=== PATIENT | male | born 1975 | race Caucasian/White ===

== ENCOUNTER 2023-06-23 11:53 | Outpatient (CLI) | payer SELFPAY ==
[2023-06-23 13:04] LABS: Basophils Absolute Auto 0.03 K/mm3 (0.00-0.10); Basophils Percent Auto 0.5 % (0.0-1.0); Eosinophils Absolute Auto 0.04 K/mm3 (0.02-0.50); Eosinophils Percent Auto 0.7 % (1.0-6.0); Hemoglobin 13.7 g/dL (14.0-18.0); Immature Granulocyte Absolute 0.02 K/mm3 (0.00-0.00); Immature Granulocyte Percent A 0.3 % (0.0-0.0); Lymphocytes Absolute Auto 1.23 K/mm3 (1.10-4.50); Lymphocytes Percent Auto 20.5 % (18.0-42.0); Mean Corpuscular HGB Conc 32.6 g/dL (32.0-36.0); Mean Corpuscular Volume 88.8 fL (78.0-102.0); Mean Platelet Volume 8.9 fl (8.7-11.0); Monocytes Absolute Auto 0.37 K/mm3 (0.10-0.90); Monocytes Percent Auto 6.2 % (2.0-11.0); Neutrophils Absolute Auto 4.3 K/mm3 (1.7-7.2); Neutrophils Percent Auto 71.8 % (50.0-70.0); Platelet Count Result 350 K/mm3 (150-420); Red Blood Count 4.73 M/mm3 (4.70-6.10); Red Cell Distribution Width 15.9 % (11.6-14.4)
[2023-06-23 13:51] LABS: Alanine Aminotransferase 29 U/L (16-63); Albumin Level 3.9 g/dL (3.4-5.0); Alkaline Phosphatase 47 U/L (46-116); Anion Gap 11 mmol/L (8-16); Aspartate Amino Transferase 14 U/L (15-37); Bilirubin,Total 0.3 mg/dL (0.00-1.00); Blood Urea Nitrogen 23 mg/dL (7-18); Calcium 9.6 mg/dL (8.5-10.1); Carbon Dioxide 28 mmol/L (21-32); Chloride 102 mmol/L (98-108); Estimated Glomerular Filt Rate > 60; Glucose 108 mg/dL (70-99); Osmolality Calculated 296 mOsm/kg (285-295); Potassium 4.1 mmol/L (3.5-5.1); Prostate Specific Antigen 2.4 ng/mL (< OR = 4.0); Sodium 141 mmol/L (136-145); Total Protein 6.9 g/dL (6.4-8.2)
[2023-06-26 12:06] LABS: Testosterone Total 787 ng/dL (250-1100)
== END 2023-06-23 11:54 | disposition home or self-care (01) ==
LOC: CHSLAB 11:57
PROVIDERS: PCP Family Medicine; Visit Provider Emergency Medicine
DX: Z00.00 Encounter for general adult medical examination without abnormal findings (principal); I10 Essential (primary) hypertension; N52.9 Male erectile dysfunction, unspecified; Z12.5 Encounter for screening for malignant neoplasm of prostate
CPT/HCPCS: 36415; 80053; 84153; 84403; 85025; G0103

== ENCOUNTER 2023-07-26 15:57 | Outpatient (CLI) | payer SELFPAY ==
[2023-07-31 13:32] LABS: Testosterone Total 411 ng/dL (250-1100)
== END 2023-07-26 15:58 | disposition home or self-care (01) ==
PROVIDERS: PCP Emergency Medicine; Visit Provider Emergency Medicine
DX: E29.1 Testicular hypofunction (principal)
CPT/HCPCS: 36415; 84403

== ENCOUNTER 2024-04-20 08:35 | Outpatient (CLI) | payer SELFPAY ==
[2024-04-20 08:56] LABS: Hematocrit 43.7 % (40.0-54.0); Hemoglobin 14.4 g/dL (14.0-18.0); Mean Corpuscular Hemoglobin 29.3 pg (27.0-31.0); Mean Platelet Volume 8.2 fl (8.7-11.0); Platelet Count Result 419 K/mm3 (150-420); Red Blood Count 4.91 M/mm3 (4.70-6.10); Red Cell Distribution Width 13.8 % (11.6-14.4); White Blood Count 7.7 K/mm3 (4.8-10.8)
[2024-04-20 09:19] LABS: Band Neutrophils Percent 0 % (0-6); Lymphocytes Absolute Manual 1.92 K/mm3 (1.1-4.5); Lymphocytes Percent Manual 25 % (18-44); Monocytes Absolute Manual 0.84 K/mm3 (0.1-0.90); Monocytes Percent Manual 11 % (3-9); Myelocytes Percent 3 %; Neutrophils Absolute Manual 4.69 K/mm3 (1.3-6.7); Neutrophils Percent Manual 61 % (46-73); Platelet Estimate Slightly Increased (Adequate); Total Cells Counted 100
[2024-04-20 09:49] LABS: HIV 1 P24 AG Negative (Negative); HIV 1/2 AB Negative (Negative)
[2024-04-20 09:52] LABS: Alanine Aminotransferase 37 U/L (16-63); Albumin Level 3.5 g/dL (3.4-5.0); Alkaline Phosphatase 49 U/L (46-116); Anion Gap 6 mmol/L (4-12); Aspartate Amino Transferase 17 U/L (15-37); Bilirubin,Total 0.2 mg/dL (0.00-1.00); Blood Urea Nitrogen 30 mg/dL (7-18); Calcium 8.7 mg/dL (8.5-10.1); Carbon Dioxide 30 mmol/L (21-32); Chloride 102 mmol/L (98-108); Cholesterol 196 mg/dL (0-200); Estimated Glomerular Filt Rate > 60; Folic Acid 15.4 ng/mL (8.6->20); Glucose 107 mg/dL (70-99); HDL Direct 56 mg/dL (40-60); LDL Cholesterol Calculated 128 mg/dL (<130); Osmolality Calculated 292 mOsm/kg (285-295); Potassium 4.5 mmol/L (3.5-5.1); Prostate Specific Antigen 2.1 ng/mL (< OR = 4.0); Sodium 138 mmol/L (136-145); Thyroid Stimulating Hormone Reflex 2.21 u/IU/mL (0.36-3.74); Total Protein 6.8 g/dL (6.4-8.2); Triglycerides 60 mg/dL (0-150); Vitamin B12 1062 pg/mL (193-986)
[2024-04-20 12:58] LABS: Trichomonas Vag PCR NOT DETECTED (NOT DETECTE)
[2024-04-20 13:19] LABS: Chlamydia trachomatis NOT DETECTED (NOT DETECTE); Neisseria gonorrhoeae PCR NOT DETECTED (NOT DETECTE)
[2024-04-21 12:02] LABS: Hepatitis A Antibody IgM NON-REACTIVE (NON-REACTIVE); Hepatitis B Core Antibody NON-REACTIVE (NON-REACTIVE); Hepatitis B Surface Antigen NON-REACTIVE (NON-REACTIVE); Hepatitis C Virus Antibody NON-REACTIVE (NON-REACTIVE)
== END 2024-04-20 08:36 | disposition home or self-care (01) ==
LOC: CHSLAB 08:37
PROVIDERS: PCP Family Medicine; Visit Provider Family Medicine
DX: I10 Essential (primary) hypertension (principal); E53.8 Deficiency of other specified B group vitamins; L40.50 Arthropathic psoriasis, unspecified; E03.9 Hypothyroidism, unspecified; R35.1 Nocturia; R74.01 Elevation of levels of liver transaminase levels; Z20.2 Contact with and (suspected) exposure to infections with a predominantly sexual mode of transmission
CPT/HCPCS: 36415; 80053; 80061; 80074; 82607; 82746; 84153; 84443; 85025; 87491; 87591; 87661; 87806

== ENCOUNTER 2025-02-18 07:29 | Outpatient (CLI) | payer OTHER, SELFPAY ==
[2025-02-18 08:07] LABS: Basophils Absolute Auto 0.05 K/mm3 (0.00-0.10); Basophils Percent Auto 0.6 % (0.0-1.0); Eosinophils Absolute Auto 0.46 K/mm3 (0.02-0.50); Eosinophils Percent Auto 5.1 % (1.0-6.0); Hematocrit 43.7 % (40.0-54.0); Hemoglobin 13.3 g/dL (14.0-18.0); Immature Granulocyte Absolute 0.06 K/mm3 (0.00-0.00); Immature Granulocyte Percent A 0.7 % (0.0-0.0); Lymphocytes Absolute Auto 1.61 K/mm3 (1.10-4.50); Lymphocytes Percent Auto 17.8 % (18.0-42.0); Mean Corpuscular HGB Conc 30.4 g/dL (32-36); Mean Corpuscular Hemoglobin 24.7 pg (27.0-31.0); Mean Corpuscular Volume 81.1 fL (78.0-102.0); Mean Platelet Volume 8.3 fl (8.7-11.0); Monocytes Absolute Auto 0.71 K/mm3 (0.10-0.90); Monocytes Percent Auto 7.8 % (2.0-11.0); Neutrophils Absolute Auto 6.16 K/mm3 (1.70-7.20); Platelet Count Result 473 K/mm3 (150-420); Red Blood Count 5.39 M/mm3 (4.70-6.10); Red Cell Distribution Width 17.1 % (11.6-14.4); White Blood Count 9.1 K/mm3 (4.8-10.8)
[2025-02-18 08:36] LABS: Alanine Aminotransferase 19 U/L (6-50); Albumin Level 4.3 g/dL (3.5-5.1); Alkaline Phosphatase 52 U/L (38-126); Anion Gap 4 mmol/L (4-12); Aspartate Amino Transferase 24 U/L (17-59); Bilirubin,Total 0.3 mg/dL (0.2-1.3); Blood Urea Nitrogen 21 mg/dL (9-20); Calcium 9.1 mg/dL (8.4-10.2); Carbon Dioxide 31 mmol/L (22-30); Chloride 104 mmol/L (98-107); Cholesterol 191 mg/dL (0-200); Estimated Glomerular Filt Rate > 60; Glucose 112 mg/dL (65-110); HDL Direct 45 mg/dL; LDL Cholesterol Calculated 120 mg/dL (<130); Osmolality Calculated 292 mOsm/kg (285-295); Potassium 4.5 mmol/L (3.4-5.0); Sodium 139 mmol/L (137-145); Total Protein 7.3 g/dL (6.3-8.2); Triglycerides 131 mg/dL (<150)
[2025-02-18 09:06] LABS: Prostate Specific Antigen 1.6 ng/mL (< OR = 4.0)
[2025-02-18 09:43] LABS: HIV 1 P24 AG Negative (Negative); HIV 1/2 AB Negative (Negative)
[2025-02-18 16:31] LABS: Syphilis IgG/IgM Antibody Negative (Negative)
[2025-02-18 17:26] LABS: Chlamydia trachomatis NOT DETECTED (NOT DETECTE); Neisseria gonorrhoeae PCR NOT DETECTED (NOT DETECTE)
[2025-02-20 15:53] LABS: Hepatitis A Antibody IgM NON-REACTIVE (NON-REACTIVE); Hepatitis B Core Antibody NON-REACTIVE (NON-REACTIVE)
[2025-02-20 16:03] LABS: Hepatitis B Surface Antigen NON-REACTIVE (NON-REACTIVE); Hepatitis C Virus Antibody NON-REACTIVE (NON-REACTIVE)
== END 2025-02-18 07:30 | disposition home or self-care (01) ==
PROVIDERS: PCP Family Medicine; Visit Provider Family Medicine
DX: Z00.00 Encounter for general adult medical examination without abnormal findings (principal); R74.01 Elevation of levels of liver transaminase levels; Z20.2 Contact with and (suspected) exposure to infections with a predominantly sexual mode of transmission; I10 Essential (primary) hypertension; R35.1 Nocturia; E03.9 Hypothyroidism, unspecified
CPT/HCPCS: 36415; 80053; 80061; 80074; 84153; 84443; 85025; 86593; 87491; 87591; 87806

== ENCOUNTER 2025-03-20 06:22 | Outpatient (CLI) | payer OTHER, SELFPAY ==
--- NOTE | 2025-03-20 09:26 | EST_ITS ---
Patient Info Name: Ashutosh Mora Age: 50 years : 1975 Gender: Male Ht: 63 in Wt: 169 lbs BSA: 1.87 m2 HR: 90 bpm BP: 161 / 93 mmHg Heart Rhythm: Sinus Rhythm Technical Quality: Good Exam Date: 03/20/2025 9:26 AM Patient Status: O Admit Date: 03/20/2025 Exam Type: CA stress test treadmill A treadmill exercise stress test was performed. Staff Attending Provider: Nilesh Osorio Summary 1. 1. Negative Pradip exercise stress test for ischemic ST changes by ECG criteria. 2. 2. Good functional capacity, achieving 12 METs of workload. 3. 3. Hypertensive response to exercise. 4. 4. Appropriate HR response to exercise. 5. 5. Appropriate HR recovery at 1 minute post exercise. 6. 6. No imaging with stress testing. History/Risk Factors Hypertension: Yes Protocol: Pradip Stress ECG Details Stage: REST Duration (min): 3 min : 7 sec Speed (mph): 0.0 Grade (%): 0 HR (bpm): 81 SBP (mmHg): 161 DBP (mmHg): 93 METS: --- Stage: REST Duration (min): 3 min : 41 sec Speed (mph): 0.0 Grade (%): 0 HR (bpm): 89 SBP (mmHg): 161 DBP (mmHg): 93 METS: --- Stage: REST Duration (min): 4 min : 32 sec Speed (mph): 0.0 Grade (%): 0 HR (bpm): 90 SBP (mmHg): 161 DBP (mmHg): 93 METS: --- Stage: REST Duration (min): 5 min : 27 sec Speed (mph): 0.0 Grade (%): 0 HR (bpm): 94 SBP (mmHg): 161 DBP (mmHg): 93 METS: --- Stage: STAGE 1 Duration (min): 1 min : 0 sec Speed (mph): 1.7 Grade (%): 10 HR (bpm): 104 SBP (mmHg): 161 DBP (mmHg): 93 METS: --- Stage: STAGE 1 Duration (min): 2 min : 0 sec Speed (mph): 1.7 Grade (%): 10 HR (bpm): 113 SBP (mmHg): 161 DBP (mmHg): 93 METS: --- Stage: STAGE 1 Duration (min): 3 min : 0 sec Speed (mph): 1.7 Grade (%): 10 HR (bpm): 113 SBP (mmHg): 187 DBP (mmHg): 94 METS: --- Stage: STAGE 2 Duration (min): 1 min : 0 sec Speed (mph): 2.5 Grade (%): 12 HR (bpm): 123 SBP (mmHg): 187 DBP (mmHg): 94 METS: --- Stage: STAGE 2 Duration (min): 2 min : 0 sec Speed (mph): 2.5 Grade (%): 12 HR (bpm): 128 SBP (mmHg): 187 DBP (mmHg): 94 METS: --- Stage: STAGE 2 Duration (min): 3 min : 0 sec Speed (mph): 2.5 Grade (%): 12 HR (bpm): 132 SBP (mmHg): 228 DBP (mmHg): 96 METS: --- Stage: STAGE 3 Duration (min): 1 min : 0 sec Speed (mph): 3.4 Grade (%): 14 HR (bpm): 138 SBP (mmHg): 228 DBP (mmHg): 96 METS: --- Stage: STAGE 3 Duration (min): 2 min : 0 sec Speed (mph): 3.4 Grade (%): 14 HR (bpm): 141 SBP (mmHg): 228 DBP (mmHg): 96 METS: --- Stage: STAGE 3 Duration (min): 3 min : 0 sec Speed (mph): 3.4 Grade (%): 14 HR (bpm): 142 SBP (mmHg): 228 DBP (mmHg): 81 METS: --- Stage: STAGE 4 Duration (min): 1 min : 0 sec Speed (mph): 4.2 Grade (%): 16 HR (bpm): 149 SBP (mmHg): 228 DBP (mmHg): 81 METS: --- Stage: STAGE 4 Duration (min): 2 min : 0 sec Speed (mph): 4.2 Grade (%): 16 HR (bpm): 153 SBP (mmHg): 228 DBP (mmHg): 81 METS: --- Stage: STAGE 4 Duration (min): 2 min : 0 sec Speed (mph): 4.2 Grade (%): 16 HR (bpm): 153 SBP (mmHg): 228 DBP (mmHg): 81 METS: --- Stage: RECOVERY Duration (min): 0 min : 59 sec Speed (mph): 0.0 Grade (%): 0 HR (bpm): 132 SBP (mmHg): 184 DBP (mmHg): 57 METS: --- Stage: RECOVERY Duration (min): 1 min : 59 sec Speed (mph): 0.0 Grade (%): 0 HR (bpm): 121 SBP (mmHg): 242 DBP (mmHg): 86 METS: --- Stage: RECOVERY Duration (min): 2 min : 59 sec Speed (mph): 0.0 Grade (%): 0 HR (bpm): 111 SBP (mmHg): 242 DBP (mmHg): 86 METS: --- Stage: RECOVERY Duration (min): 3 min : 59 sec Speed (mph): 0.0 Grade (%): 0 HR (bpm): 109 SBP (mmHg): 232 DBP (mmHg): 86 METS: --- Stage: RECOVERY Duration (min): 4 min : 59 sec Speed (mph): 0.0 Grade (%): 0 HR (bpm): 102 SBP (mmHg): 232 DBP (mmHg): 86 METS: --- Stage: RECOVERY Duration (min): 5 min : 59 sec Speed (mph): 0.0 Grade (%): 0 HR (bpm): 100 SBP (mmHg): 175 DBP (mmHg): 87 METS: --- Stage: RECOVERY Duration (min): 6 min : 59 sec Speed (mph): 0.0 Grade (%): 0 HR (bpm): 101 SBP (mmHg): 175 DBP (mmHg): 87 METS: --- Stage: RECOVERY Duration (min): 7 min : 59 sec Speed (mph): 0.0 Grade (%): 0 HR (bpm): 97 SBP (mmHg): 175 DBP (mmHg): 87 METS: --- Stage: RECOVERY Duration (min): 8 min : 12 sec Speed (mph): 0.0 Grade (%): 0 HR (bpm): --- SBP (mmHg): 175 DBP (mmHg): 87 METS: --- Rest HR: 94 bpm Peak HR: 153 bpm Rest Sys BP: 161 mmHg Peak Sys BP: 242 mmHg Max Pred HR: 172 bpm % Max Pred HR: 89 % Target HR: 146 bpm Max RPP: 37,026 bpm*mmHg Merino Score: -7 Target HR Summary: Test terminated after reaching target heart rate (85% max predicted) BP Response: Patient exhibited a hypertensive response with stress Termination Reason: Fatigue Cardiac Symptoms: None Max ST Seg Deviation: 3.60 mm Total Time: 11 min : 0 sec Rest Sales BP: 93 mmHg Peak Sales BP: 86 mmHg Angina Score: None Total METS: 12.1 Resting ECG Normal sinus rhythm. Stress ECG No abnormal ST/T wave changes with exercise. Arrhythmias None. Report Signatures
== END 2025-03-20 06:23 | disposition home or self-care (01) ==
LOC: CHSCARD 06:22
PROVIDERS: PCP Family Medicine; Visit Provider Family Medicine
DX: I10 Essential (primary) hypertension (principal); R07.9 Chest pain, unspecified
CPT/HCPCS: 93017

== ENCOUNTER 2025-06-28 07:31 | Outpatient (CLI) | payer OTHER, SELFPAY ==
[2025-06-28 08:08] LABS: Hemoglobin A1C 6.1 % (<5.7)
[2025-06-28 09:05] LABS: Free T4 Free Thyroxine 1.03 ng/dL (0.78-2.19)
[2025-06-28 09:18] LABS: Thyroid Stimulating Hormone 0.193 uIU/mL (0.465-4.680)
== END 2025-06-28 07:32 | disposition home or self-care (01) ==
LOC: CHSLAB 07:33
PROVIDERS: PCP Family Medicine; Visit Provider Emergency Medicine
DX: E03.9 Hypothyroidism, unspecified (principal); R73.9 Hyperglycemia, unspecified
CPT/HCPCS: 36415; 83036; 84439; 84443

== ENCOUNTER 2025-07-26 10:30 | Outpatient (CLI) | payer OTHER, SELFPAY ==
--- NOTE | ~2025-07-26 | US_ITS ---
US arterial ankle brachial ind INDICATION: Peripheral vascular disease TECHNIQUE: Segmental pressures and plethysmographic and Doppler waveforms of the brachial and lower extremity arteries were obtained. COMPARISON: None. FINDINGS: Right and left brachial artery pressures of 135 mm Hg and 141 mm Hg, respectively, are concordant (normal difference <= 30 mmHg). The right ankle-brachial index (STEPHANIE) is 1.2 (normal >= 0.9-1.0). The right great toe-brachial index (TBI) is 1.14 (normal >= 0.60). The left STEPHANIE is 1.1. The left TBI is 0.86. IMPRESSION: 1. Normal ankle-brachial indices. Reviewed, dictated and finalized at location O. 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
--- OUTSIDE RECORDS SUMMARY | 2025-07-27 10:13 | XMS_ITS | Data Portability ---
Author Organization [facility], Urgent Care Address [address] [address] Assessment Encounter Date Assessment Date Assessment LastModified by Organization Details LastModified Time 04/03/2022 04/03/2022 follow up in 3 months. patient will bring lab work from rheumatology I reviewed lab work and notes I spent a total of 40 minutes on the date of service face to face with the patient or involved in activities including, but not limited to, reviewing chart and test results, education and counseling, documentation, and coordination of care. [email or web address] Not available 04/03/2022 13:55:08 08/01/2022 08/01/2022 follow up in 6 months. patient will bring lab work from rheumatology I reviewed lab work and notes I spent a total of 20 minutes on the date of service face to face with the patient or involved in activities including, but not limited to, reviewing chart and test results, education and counseling, documentation, and coordination of care. [email or web address] Not available 08/01/2022 14:21:26 01/30/2023 01/30/2023 follow up in 6 months. screening lab order given to patient I spent a 40 total of minutes on the date of service face to face with the patient or involved in activities including, but not limited to, reviewing chart and test results, education and counseling, documentation, and coordination of care. Results of PHQ-9 reviewed and patient screened positive/negative for depression. Follow up plan for positive depression screen includes referral to psychiatry/mental health counselor/pharmac ological intervention. Results of AUDIT reviewed and patient screened positive/negative for alcohol dependence. I engaged in brief face to face behavioral counseling for alcohol misuse with the patient. A total of 15 minutes was spent on screening/after school counselor ing. Patient's BMI reviewed and within/not within normal parameters of 18.5-25. Follow up plan for BMI outside normal parameters includes education and counseling on nutrition and exercise. Patient screened positive for tobacco use and a total of 5 minutes was spent on tobacco cessation counseling. A total of 10 minutes was spent involved in face to face intensive behavioral counseling for cardiovascular disease risk factors. Patient screened for hypertension. When benefits outweigh risks, patient advised to use aspirin for the primary prevention of cardiovascular disease. Counseling to promote a healthy diet for adults who already have hyperlipidemia, hypertension, advancing age, and other known risk factors for cardiovascular and diet related chronic diseases was provided. [email or web address] Not available 01/30/2023 16:46:50 Plan of Treatment Reminders Order Date Submit Date Provider Last Modified By Organization Details Last Modified Time Details Appointments None recorded. Lab None recorded. Referral None recorded. Procedures None recorded. Surgeries None recorded. Imaging None recorded. Medication Orders mupirocin 2 % topical ointment 2022 023 [facility], [address] [facility], [address], [place], [address], 3 17:37:43 hydrocortis one 2.5 % topical cream 2022 023 [facility], [address] [facility], [address], [place], [address], 3 15:42:59 Abilify [address] [facility], [address] [place], [id number], 3 15:01:51 Patient TargetsNo targets recorded. Patient InstructionsNo instructions recorded. Reason for Referral None Reported. Results Created Date Observation Date Name Description Value Unit Range Abnormal Flag Note LastModifiedBy Organization Detail LastModifiedTime Result Notes None recorded. Problems Name Problem SNOMED Code Status Onset Date Resolution Date Notes Provider Name and Address Organization Details Recorded Time Depressive disorder 98280735 Active 022 EMILY Whitt [address] [place], [address] [place] [address] Urgent [facility] 2 13:51:40 Problem Notes None recorded. Medical Equipment None Reported. Allergies Allergen ID Allergen Name Allergen Category Reaction Reaction Severity Criticality Documentation Date Start Date Code Code System Note Provider Name and Address Organization Details Recorded Time 2261 Substance with sulfonami de structure and antibacte rial mechanism of action (substanc e) medicatio n Not available Not available Not available 04/03/2022 60141 [id number] SNOMED Louie Russ Jr. [facility], [facility] 2 12:26:17 Medications Name Sig Start Date Stop Date Status Note LastModified by Organization Details LastModified Time Prilosec 40 mg capsule,del ayed release Take 1 capsule every day by oral route at bedtime. active Not Available Not Available No t Available Mobic 15 mg tablet Take 1 tablet every day by oral route. active Not Available Not Available No t Available Percocet 10 mg-325 mg tablet Take 1 tablet 3 times a day by oral route. active Not Available Not Available No t Available Robaxin 500 mg tablet Take 1 tablet twice a day by oral route. active Not Available Not Available No t Available Norvasc 5 mg tablet Take 1 tablet every day by oral route. 01/30 completed Not Available Not Available Not Available hydrocortis one 2.5 % topical cream APPLY A THIN LAYER TO THE AFFECTED AREA(S) BY TOPICAL ROUTE 2 TIMES PER DAY 2022 active Not Available Not Available Not Avai lable mupirocin 2 % topical ointment APPLY A SMALL AMOUNT TO THE AFFECTED AREA BY TOPICAL ROUTE 3 TIMES PER DAY 2022 active Not Available Not Available Not Avai lable Omnicef 300 mg capsule Take 2 capsules every day by oral route. 2022 active Not Available Not Available Not Avai lable BuSpar 15 mg tablet Take 1 tablet 3 times a day by oral route. active Not Available Not Available No t Available Klonopin 1 mg tablet Take 1 tablet every day by oral route. active Not Available Not Available No t Available losartan 100 mg tablet Take 1 tablet every day by oral route. 08/01 completed Not Available Not Available Not Available Abilify 5 mg tablet Take 1 tablet every day by oral route. active Not Available Not Available No t Available Cialis 5 mg tablet Take 1 tablet as needed by oral route. active Not Available Not Available No t Available Truvada 200 mg-300 mg tablet Take 1 tablet every day by oral route. active Not Available Not Available No t Available Cymbalta 60 mg capsule,del ayed release Take 1 capsule twice a day by oral route. active Not Available Not Available No t Available Abilify 2 mg tablet Take 1 tablet every day by oral route. 01/30 completed Not Available Not Available Not Available Flonase Allergy Relief PRN OTC active Not Available Not Available Not Available Vitals Date Recorded Body height Body mass index (BMI) Body weight Body temperature Heart rate Respiratory rate Oxygen saturation Oxygen saturation in Arterial blood by Pulse oximetry Systolic And Diastolic Provider Name and Address Organization Details Last Updated DateTime 3 160.02 cm 26.9 kg/m2 06973.3 2 g 98 [degF] 82 /min 18 /min 100 % 100 % 134/83 mm[Hg] Shell Malave [employer] 3 14:50:29 Date Recorded Body height Body mass index (BMI) Body weight Body temperature Heart rate Respiratory rate Oxygen saturation Oxygen saturation in Arterial blood by Pulse oximetry Systolic And Diastolic Provider Name and Address Organization Details Last Updated DateTime 2 160.02 cm 26.5 kg/m2 22520.7 g 98.2 [degF] 66 /min 18 /min 100 % 100 % 113/83 mm[Hg] Louie Russ Jr. [employer] 2 13:00:24 Date Recorded Body height Body mass index (BMI) Body weight Body temperature Oxygen saturation Oxygen saturation in Arterial blood by Pulse oximetry Heart rate Respiratory rate Systolic And Diastolic Provider Name and Address Organization Details Last Updated DateTime 2 160.02 cm 27.3 kg/m2 65503.9 4 g 96.8 [degF] 100 % 100 % 67 /min 18 /min 123/83 mm[Hg] Barby Pandya [employer] 2 13:47:45 Social History Question Answer Notes LastModified by Organizat ion Details LastModified Time Tobacco Smoking Status Never Smoker Louie Russ Jr. null, [employer] 04/03/2022 12:57:58 What Was The Date Of Your Most Recent Tobacco Screening? 01/30/2023 Information not available 01/30/2023 Have You Ever Been Counseled For Unhealthy Alcohol Use? No Information not available 01/30/2023 Has Tobacco Cessation Counseling Been Provided? No Information not available 01/30/2023 Sex: Unknown Functional Status Question Answer Note LastModified by Organizat ion Details LastModified Time How many times per week do you consume alcohol? Less than 1 time per week Information not available 01/30/2023 Do you use any illicit or recreational drugs? No Information not available 01/30/2023 Do you or have you ever used any other forms of tobacco or nicotine? No Information not available 01/30/2023 What is your level of alcohol consumption? Occasional [email or web address] Information not available 04/03/2022 Mental Status None recorded. Family History Nothing Reported. Medical History Condition Response Arthritis Y High Blood Pressure/Hypertension Y Depression Y Past Encounters Encounter ID Performer Location Encounter Start Date Encounter Closed Date Diagnosis/Indication Diagnosis SNOMED-CT Code Diagnosis ICD10 Code Diagnosis IMO Codes Diagnosis Note [id number] EMILY Whitt Main Office [address] [address] 04/03/2022 12:14:23 04/03/2022 13:38:17 Depressive disorder 62626934 F32.A continue other medication Psoriatic arthritis 1563 71755 L40.50 refill percocet. patient is aware I can not prescribe. 1 refill until seen by rheummirna vazquez. continue other medciation referral dr Lujan Essential hypertension 68972214 I10 take BP daily. Call for BP >160. take medication s daily. exercise 150 minutes in 7 days avoid salt in diet Decrease weight by 5% GO TO ED for CP, headaches, slurred speech, changes in mental status Gastroesop hageal reflux disease without esophagitis 921637255 K21.9 continue zantac. watch diet [id number] EMILY Whitt Main Office [address] [address] 08/01/2022 13:30:48 08/01/2022 14:12:17 Depressive disorder 41934192 F32.A continue other medication Psoriatic arthritis 1563 01383 L40.[address] Lujan for refill percocet. patient is aware I can not prescribe. continue medication . follow up dr Lujan Essential hypertension 42121077 I10 take 3 times per week. Call for BP >160. take medication s daily.exer cise 150 minutes in 7 daysavoid salt in dietDecrea se weight by 5%GO TO ED for CP, headaches, slurred speech, changes in mental status Gastroesop hageal reflux disease without esophagitis 695901380 K21.9 continue zantac. watch diet [id number] Andrzej Moseley, [facility] Main Office [address] [place], [address] 01/30/2023 14:32:45 01/30/2023 15:16:48 Depressive disorder 70141045 F32.A continue other medication Psoriatic arthritis 1563 85757 L40.50 continue medication . follow up dr Lujan Essential hypertension 40513186 I10 take 3 times per week. Call for BP >160. continue off amlodipine exercise 150 minutes in 7 daysavoid salt in dietDecrea se weight by 5%GO TO ED for CP, headaches, slurred speech, changes in mental status Gastroesop hageal reflux disease without esophagitis 554617199 K21.9 continue zantac. watch diet Cellulitis 484294028 L03 .90 follow up if persist or increases Health Concerns Section Related Observation LastModified by Organization Detai ls LastModified Time None Recorded Concern Status LastModified by Organization Details LastModified Time None Recorded Advance Directives Directive None Recorded Payers Insurance Date Sequence Insurance Name Policy Number Policy White Covered Member ID White Member ID Guarantor Name 03/26/2022 1 *SELF PAY* To germaine Mora Notes Date Note Type Note Provider Name and Address Organization Details Recorded Time 04/03/2022 text/html ROS as noted in the HPI PMH significant for HTN, Psoriasis arthritis, depression, GERDhere to establish care [place] Compliant with and Tolerating medication (as reviewed in Medication List) without adverse side effects. BP range at home: controlled with medicaton. hx of psoriatic arthrits. off enbrel due to covid Pars defect and shoulder pain. know having finger with pitting in nail. would like a referral to rheumatology. Percocet from [facility] pain management. get refill month . take 2 pills a day. 60 per month. need to establish care for script refills sees pain management for injection every 6 months in back and shoulder chronic sinusitis take omnicef daily. had pneumonia vaccine x 3 has labs every 4-6 month. on Prep Truvada depression symptoms have increased. recent break up feeling blue uses abilify as needed when symptoms increase. Klonopin every night, cymbalta and buspar daily recent thyroid US normal Doing well today without any complaints of chest pain, SOB, NV, fever aches or chills, MARTÍNEZ, change in vision, edema. 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 BP range at home: Decrease BP meds 120/80 with amlodipine 2.5 mg day. lost 25 pounds hx of psoriatic arthrits. See Rheumotology [facility]. Methotraxate. needs refill on percocet. will contact on [facility] sees pain management for injection every 6 months in back and shoulder chronic sinusitis take omnicef daily. had pneumonia vaccine x 3 has labs every 4-6 month. on Prep Truvada depression symptoms stable. abilify working well Klonopin every night, cymbalta and buspar daily Doing well today without any complaints of chest pain, SOB, NV, fever aches or chills, MARTÍNEZ, change in vision, edema. MEILY Whitt [address] [place], [address], [employer] 08/01/2022 14:46:40 01/30/2023 text/html ROS as noted in the HPI PMH significant for HTN, Psoriasis arthritis, depression, GERD here for follow up [place]. 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 has labs every 4-6 month. on Prep Truvada last lab work needs lab order Compliant with and Tolerating medication (as reviewed in Medication List) without adverse side effects. BP range at home: Decrease BP meds 120/80 stopped amlodipine 2.5 mg day hx of psoriatic arthritis. See Rheumotology [facility]. Methotraxate. needs refill on percocet. will contact on [facility] sees pain management for injection every 6 months in back and shoulder chronic sinusitis take omnicef daily. had pneumonia vaccine x 3 depression symptoms stable. abilify 5 daily working well Klonopin every night, cymbalta and buspar daily. sleeping well. no SI Doing well today without any complaints of chest pain, SOB, NV, fever aches or chills, MARTÍNEZ, change in vision, edema. EGD in the last 5 yearscolonoscopy in the last 5 years. Andrzej Moseley, COMMUNITY HEALTH SPECIALIST [address] , , [address], - [facility] 01/30/2023 16:49:17
== END 2025-07-26 10:31 | disposition home or self-care (01) ==
LOC: CHSIMG 10:31
PROVIDERS: PCP Family Medicine; Visit Provider Family Medicine
DX: I73.9 Peripheral vascular disease, unspecified (principal); I10 Essential (primary) hypertension
CPT/HCPCS: 93922

== ENCOUNTER → 2025-08-22 15:28 | Outpatient (REF) | payer OTHER, SELFPAY ==
--- NOTE | 2025-08-22 15:28 | S_PTH ---
PATIENT: Ashutosh Mora LOC: ANAB #:[id number] AGE/SX: 50/M ROOM: RE08/22/[address]: Marvel Jane MD : 1975 BED: DIS: SPEC #: [id number] RECD: 08/23/25 07:19 STATUS: KRISTINA REQ #: [id number] [place]: 08/22/25 15:[address]: Marvel Jane DEPT: [facility] Surgical RECD BY: Valeria Chandler ENTERED: 08/23/25 07:19 SP TYPE: Surgical OTHR DR: Nilesh Osorio DO Tissues: A - Skin Procedures: Hematoxylin and Eosin Stain Gross and Microscopic Level 4
--- OUTSIDE RECORDS SUMMARY | 2025-08-22 16:39 | XMS_ITS | Data Portability ---
Author Organization [employer] [facility], Urgent Care Address [address] [place] [address] Assessment Encounter Date Assessment Date Assessment LastModified [...] and counseling, documentation, and coordination of care. [email or web address] Not available 04/03/2022 13:55:08 08/01/2022 08/01/2022 follow [...] and counseling, documentation, and coordination of care. [email or web address] Not available 08/01/2022 14:21:26 01/30/2023 01/30/2023 follow [...] total of 15 minutes was spent on screening/queen's counsel ing. Patient's BMI reviewed and within/not within [...] and diet related chronic diseases was provided. [email or web address] Not available 01/30/2023 16:46:50 Plan of Treatment Reminders Order Date Submit Date Provider Last Modified By Organization Details Last Modified Time Details Appointments None recorded. Lab None recorded. Referral None recorded. Procedures None recorded. Surgeries None recorded. Imaging None recorded. Medication Orders mupirocin 2 % topical ointment 2022 023 [facility], [address] [facility], [address], [place], [address], 3 17:37:43 hydrocortis one 2.5 % topical cream 2022 023 [facility], [address] [facility], [address], [place], [address], 3 15:42:59 Abilify 2 mg tablet 2021 023 [facility], [address] [place], [id number], 3 15:01:51 Patient TargetsNo targets recorded. Patient InstructionsNo instructions recorded. Reason for Referral None Reported. Results Created Date Observation Date Name Description Value Unit Range Abnormal Flag Note LastModifiedBy Organization Detail LastModifiedTime Result Notes None recorded. Problems Name Problem SNOMED Code Status Onset Date Resolution Date Notes Provider Name and Address Organization Details Recorded Time Depressive disorder 58396417 Active 022 EMILY Whitt [address] [place], [address] [place] [address] Urgent [facility] 2 13:51:40 Problem Notes None recorded. Medical Equipment None Reported. Allergies Allergen ID Allergen Name Allergen Category Reaction Reaction Severity Criticality Documentation Date Start Date Code Code System Note Provider Name and Address Organization Details Recorded Time 2261 Substance with sulfonami de structure and antibacte rial mechanism of action (substanc e) medicatio n Not available Not available Not available 04/03/2022 51100 8003 SNOMED Louie Russ Jr. [facility], [place] [facility] [employer] [facility] 2 12:26:17 Medications Name Sig Start Date [...] temperature Heart rate Respiratory rate Oxygen saturation Systolic And Diastolic Provider Name and Address Organization Details Last Updated DateTime 3 160.02 cm 26.9 kg/m2 89757.3 2 g 98 [degF] 82 /min 18 /min 100 % 134/83 mm[Hg] Shell Malave [facility] 3 14:50:29 Date Recorded Body height Body mass index (BMI) Body weight Body temperature Heart rate Respiratory rate Oxygen saturation Systolic And Diastolic Provider Name and Address Organization Details Last Updated DateTime 2 160.02 cm 26.5 kg/m2 42139.7 g 98.2 [degF] 66 /min 18 /min 100 % 113/83 mm[Hg] Louie Russ Jr. [facility] 2 13:00:24 Date Recorded Body height Body mass index (BMI) Body weight Body temperature Oxygen saturation Heart rate Respiratory rate Systolic And Diastolic Provider Name and Address Organization Details Last Updated DateTime 2 160.02 cm 27.3 kg/m2 36041.9 4 g 96.8 [degF] 100 % 67 /min 18 /min 123/83 mm[Hg] Barby Pandya [facility] 2 13:47:45 Social History Question Answer Notes LastModified by Organizat ion Details LastModified Time Tobacco Smoking Status Never Smoker Louie Russ Jr. [facility], [facility] 04/03/2022 12:57:58 What Was The Date Of [...] Reported. Medical History Condition Response Arthritis Y Depression Y High Blood Pressure/Hypertension Y Past Encounters Encounter ID Performer Location Encounter Start Date Encounter Closed Date Diagnosis/Indication Diagnosis SNOMED-CT Code Diagnosis ICD10 Code Diagnosis IMO Codes Diagnosis Note [id number] EMILY Whitt Main Office [address] [place], [address] 04/03/2022 12:14:23 04/03/2022 13:38:17 Depressive disorder 87887356 F32.A continue other medication Psoriatic arthritis 1564 42963 L40.50 refill percocet. patient is aware I can not prescribe. 1 refill until seen by rheummirna vazqeuz. continue other medciation referral dr Lujan Essential hypertension 51122787 I10 take BP daily. Call for BP >160. take medication s daily. exercise 150 minutes in 7 days avoid salt in diet Decrease weight by 5% GO TO ED for CP, headaches, slurred speech, changes in mental status Gastroesop hageal reflux disease without esophagitis 723397213 K21.9 continue zantac. watch diet [id number] EMILY Whitt Main Office [address] [place], [address] 08/01/2022 13:30:48 08/01/2022 14:12:17 Depressive disorder 45490300 F32.A continue other medication Psoriatic arthritis 1569 76778 L40.[address] Lujan for refill percocet. patient is aware I can not prescribe. continue medication . follow up dr Lujan Essential hypertension 85380585 I10 take 3 times per week. Call for BP >160. take medication s daily.exer cise 150 minutes in 7 daysavoid salt in dietDecrea se weight by 5%GO TO ED for CP, headaches, slurred speech, changes in mental status Gastroesop hageal reflux disease without esophagitis 901905466 K21.9 continue zantac. watch diet [id number] Andrzej Moseley [facility] Main Office [address] [place], [address] 01/30/2023 14:32:45 01/30/2023 15:16:48 Depressive disorder 06864214 F32.A continue other medication Psoriatic arthritis 1563 96487 L40.50 continue medication . follow up dr Lujan Essential hypertension 87340844 I10 take 3 times per week. Call for BP >160. continue off amlodipine exercise 150 minutes in 7 daysavoid salt in dietDecrea se weight by 5%GO TO ED for CP, headaches, slurred speech, changes in mental status Gastroesop hageal reflux disease without esophagitis 137188752 K21.9 continue zantac. watch diet Cellulitis 309129242 L03 .90 follow up if persist or [...] like a referral to rheumatology. Percocet from [facility]. get refill month . [...] vision, edema. EMILY Whitt [address] , [place], [address], [facility] 04/03/2022 18:30:07 08/01/2022 text/html ROS as noted [...] edema. EMILY Whitt [address] [place], [address], [facility] 08/01/2022 14:46:40 01/30/2023 text/html ROS as noted [...] in the last 5 years. Andrzej Moseley, EMILY [address] , [place], [address], [facility] 01/30/2023 16:49:17
== END ==
LOC: ANHLAB 15:28
PROVIDERS: PCP Family Medicine; Visit Provider Plastic Surgery
DX: D48.5 Neoplasm of uncertain behavior of skin (principal)
CPT/HCPCS: 88305